=== PATIENT | female | born 1965 | race Caucasian/White ===

== ENCOUNTER 2020-01-02 12:53 | Outpatient (CLI) | payer OTHER, SELFPAY ==
--- NOTE | ~2020-01-02 | DEXA_ITS ---
Bone Density Report Name: Marian Shaw Age: 54 Sex: Female Ethnicity: White Date of : 1965 Indication: osteopenia; height loss; prior fracture; cancer; postmenopausal Referring Provider: Moo Webster Study: Bone densitometry was performed. Exam Date: January 02, 2020 Accession number: [id number] Bone Density: Region BMD T-score Z-score Classification AP Spine (L1, L2, L3) 1.044 0.2 1.3 Normal Femoral Neck (Left) 0.710 -1.2 -0.1 Osteopenia Total Hip (Left) 0.809 -1.1 -0.4 Osteopenia Total Hip Bilateral Avg 0.809 -1.1 -0.4 Osteopenia Femoral Neck (Right) 0.792 -0.5 0.6 Normal Total Hip (Right) 0.808 -1.1 -0.4 Osteopenia World Health Organization criteria for BMD impression classify patients as: Normal (T-score at or above -1.0), Osteopenia (T-score between -1.0 and -2.5), or Osteoporosis (T-score at or below -2.5). 10-year Fracture Risk(1): Major Osteoporotic Fracture 11% Hip Fracture 1.3% Reported Risk Factors: [place] (), Neck BMD=0.710, BMI=22.8, previous fracture, smoking (1) FRAX(R) Version 3.08. Fracture probability calculated for an untreated patient. Fracture probability may be lower if the patient has received treatment. Previous Exams: Region Exam Age BMD T-score BMD Change BMD Change Date g/cm2 vs Baseline vs Previous AP Spine(L1, L2, L3) 01/02/2020 54 1.044 0.2 -0.037(-3.4%)* -0.040(-3.7%)* 08/16/2017 51 1.084 0.6 0.003(0.3%) 0.003(0.3%) 06/18/2016 50 1.081 0.6 Total Hip(Left) 01/02/2020 54 0.809 -1.1 -0.018(-2.2%) -0.019(-2.2%) 08/16/2017 51 0.828 -0.9 0.001(0.1%) 0.001(0.1%) 06/18/2016 50 0.827 -0.9 Total Hip(Right) 01/02/2020 54 0.808 -1.1 -0.012(-1.4%) -0.003(-0.3%) 08/16/2017 51 0.810 -1.1 -0.009(-1.1%) -0.009(-1.1%) 06/18/2016 50 0.819 -1.0 *Denotes significance at 95% confidence level, LSC for AP Spine = 0.022 g/cm2, LSC for Total Hip = 0.027 g/cm2 Clinical Information Provided by Patient: Has had a low trauma fracture Smokes Has used the following medications: Vitamin D, Calcium Has the following medical conditions: Cancer Patient maximum height was 70 Menopause Age: 49 No regular weight bearing exercise Drinks caffeinated beverages Onset of menses at age 13 Number of children 0 Impression: The patient has low bone mass, based on the Left Femoral Neck T-score. The patient has an estimated ten-year risk of hip fracture of
== END 2020-01-02 12:54 | disposition home or self-care (01) ==
PROVIDERS: Visit Provider Internal Medicine Hematology & Oncology
DX: M85.89 Other specified disorders of bone density and structure, multiple sites (principal)
CPT/HCPCS: 77080

== ENCOUNTER 2020-07-16 09:34 | Outpatient (CLI) | payer OTHER, SELFPAY ==
--- NOTE | ~2020-07-16 | XR_ITS ---
EXAMINATION: XR hand BI arthritis min 3V EXAM DATE: 07/16/2020 10:00 INDICATION: No known recent injury provided at this time. Pain of the hands. Arthritis. TECHNIQUE: Right hand frontal, lateral and oblique projections obtained and reviewed. Left hand fron jayden, lateral and oblique projections obtained and reviewed. Catchers projection of both hands. There is no prior study for comparison. FINDINGS: There are no bony erosions identified. The joint spaces are uniform. There are no acute fr actures or dislocations identified. There is no subcutaneous gas. The soft tissue is unremarkable. There are no radiopaque foreign bodies. IMPRESSION: 1. Unremarkable hand x-ray exam. Reviewed, dictated and finalized at location A.
[2020-07-16 10:32] LABS: Rheumatoid Factor Screen Negative (Negative)
[2020-07-19 09:59] LABS: Anti Cyclic Citrullinated Pept <16 Units (<20)
[2020-07-20 10:43] LABS: ANA Cascade Screen Negative (Negative)
== END 2020-07-16 09:35 | disposition home or self-care (01) ==
LOC: CHSLAB 09:37
PROVIDERS: PCP Family Medicine; Visit Provider Family Medicine
DX: M79.641 Pain in right hand (principal); M79.642 Pain in left hand
CPT/HCPCS: 36415; 73130; 86038; 86200; 86430

== ENCOUNTER 2020-08-14 14:18 | Outpatient (CLI) | payer OTHER, SELFPAY ==
--- NOTE | ~2020-08-14 | MM_ITS ---
EXAMINATION: MM screening man BI w jerry HISTORY: Screening TECHNIQUE: Craniocaudal and mediolateral oblique 3-D tomosynthesis images were obtained and synthetic 2-D images were generated. CAD analysis was submitted and interpreted. COMPARISON: Comparison to multiple prior studies sequentially, with oldest reviewed study dated 12/2016. BREAST PARENCHYMAL COMPOSITION: There are scattered areas of fibroglandular density. FINDINGS: There is no evidence of suspicious mass, calcification, or architectural distortion to sugg est malignancy in either breast. There has been no suspicious interval change. IMPRESSION: 1. No mammographic evidence of malignancy. 2. Recommend routine screening mammography in one year. BI-RADS Category 1: Negative Reviewed, dictated and finalized at location A.
== END 2020-08-14 14:19 | disposition home or self-care (01) ==
LOC: ANHIMG 14:20
PROVIDERS: PCP Family Medicine; Visit Provider Internal Medicine Hematology & Oncology
DX: Z12.31 Encounter for screening mammogram for malignant neoplasm of breast (principal)
CPT/HCPCS: 77063; 77067

== ENCOUNTER 2020-11-17 13:09 | Outpatient (CLI) | payer OTHER, SELFPAY ==
[2020-11-17 13:24] LABS: Basophils Absolute Auto 0.1 K/mm3 (0.0-0.1); Eosinophils Absolute Auto 0.1 K/mm3 (0-0.3); Hematocrit 38.1 % (37.0-47.0); Hemoglobin 12.6 g/dL (12.0-15.0); Lymphocytes Absolute Auto 1.56 K/mm3 (0.9-3.2); Lymphocytes Percent Auto 30.8 % (18.3-44.2); Mean Corpuscular HGB Conc 33.1 g/dl (32-36); Mean Corpuscular Hemoglobin 31.5 pg (26-34); Mean Corpuscular Volume 95.3 fl (80-100); Mean Platelet Volume 8.9 fl (7.4-10.4); Monocytes Absolute Auto 0.4 K/mm3 (0.1-0.6); Monocytes Percent Auto 8.5 % (2.6-8.5); Neutrophils Percent Auto 58.7 % (45.5-73.1); Platelet Count Result 305 k/mm3 (150-375); Red Cell Distribution Width 12.3 % (11.5-14.5); White Blood Count 5.1 K/mm3 (4.5-10.0)
[2020-11-17 13:28] LABS: Blood Urea Nitrogen 4 mg/dL (8-26); Carbon Dioxide 28 mmol/L (22-30); Chloride 100 mmol/L (98-109); Estimated Glomerular Filt Rate > 60; Glucose 86 mg/dL (70-105); Potassium 4.2 mmol/L (3.5-4.9); Sodium 138 mmol/L (138-146)
[2020-11-17 16:35] LABS: Alanine Aminotransferase 12 U/L (4-35); Albumin Level 4.4 g/dL (3.5-5.1); Alkaline Phosphatase 45 U/L (38-126); Anion Gap 6 mmol/L (8-16); Aspartate Amino Transferase 28 U/L (14-36); Bilirubin,Total 0.3 mg/dL (0.2-1.3); Blood Urea Nitrogen 6 mg/dL (7-17); Calcium 9.9 mg/dL (8.4-10.2); Carbon Dioxide 30 mmol/L (22-30); Chloride 100 mmol/L (98-107); Estimated Glomerular Filt Rate > 60; Glucose 88 mg/dL (65-105); Potassium 4.2 mmol/L (3.4-5.0); Sodium 136 mmol/L (137-145)
[2020-11-21 05:44] LABS: CA 27.29 12 U/mL (<38)
== END 2020-11-17 13:10 | disposition home or self-care (01) ==
LOC: ANHLAB 13:11
PROVIDERS: PCP Family Medicine; Visit Provider Internal Medicine Hematology & Oncology
DX: C50.912 Malignant neoplasm of unspecified site of left female breast (principal)
CPT/HCPCS: 36415; 80048; 80053; 85025; 86300

== ENCOUNTER 2021-01-19 15:20 | Outpatient (CLI) | payer OTHER, SELFPAY ==
[2021-01-19 16:19] LABS: Thyroid Stimulating Hormone Reflex 1.43 u/IU/mL (0.36-3.74)
== END 2021-01-19 15:21 | disposition home or self-care (01) ==
LOC: CHSLAB 15:23
PROVIDERS: PCP Family Medicine; Visit Provider Family Medicine
DX: F32.9 Major depressive disorder, single episode, unspecified (principal); K59.00 Constipation, unspecified
CPT/HCPCS: 36415; 84443

== ENCOUNTER 2021-06-10 14:30 | Outpatient (CLI) | payer OTHER, SELFPAY ==
[2021-06-10 15:10] LABS: Uric Acid 3.5 mg/dL (2.6-6.0)
== END 2021-06-10 14:31 | disposition home or self-care (01) ==
LOC: CHSLAB 14:33
PROVIDERS: PCP Family Medicine; Visit Provider Family Medicine
DX: M10.9 Gout, unspecified (principal)
CPT/HCPCS: 36415; 84550

== ENCOUNTER 2021-09-09 12:38 | Outpatient (CLI) | payer OTHER, SELFPAY ==
--- NOTE | ~2021-09-09 | MM_ITS ---
EXAMINATION: MM screening man BI w jerry HISTORY: Screening TECHNIQUE: Craniocaudal and mediolateral oblique 3-D tomosynthesis images were obtained and synthetic 2-D images were generated. CAD analysis was submitted and interpreted. COMPARISON: Comparison to multiple prior studies sequentially, with oldest reviewed study dated 12/2016. BREAST PARENCHYMAL COMPOSITION: The breasts are heterogenously dense, which may obscure small masses FINDINGS: There is no evidence of suspicious mass, calcification, or architectural distortion to sugg est malignancy in either breast. There has been no suspicious interval change. IMPRESSION: 1. No mammographic evidence of malignancy. 2. Recommend routine screening mammography in one year. BI-RADS Category 1: Negative Reviewed, dictated and finalized at location A.
== END 2021-09-09 12:39 | disposition home or self-care (01) ==
LOC: ANHIMG 12:42
PROVIDERS: PCP Family Medicine; Visit Provider Internal Medicine Hematology & Oncology
DX: Z12.31 Encounter for screening mammogram for malignant neoplasm of breast (principal)
CPT/HCPCS: 77063; 77067

== ENCOUNTER 2022-02-11 13:38 | Outpatient (CLI) | payer OTHER, SELFPAY ==
[2022-02-11 14:04] LABS: Basophils Absolute Auto 0.1 K/mm3 (0.0-0.1); Basophils Percent Auto 0.7 % (0.2-1.2); Eosinophils Percent Auto 0.4 % (0-4.4); Hematocrit 42.6 % (37.0-47.0); Hemoglobin 14.2 g/dL (12.0-15.0); Immature Granulocyte Absolute 0.02 K/mm3 (0.00-0.031); Immature Granulocyte Percent A 0.3 % (0-0.5); Lymphocytes Absolute Auto 1.57 K/mm3 (0.9-3.2); Lymphocytes Percent Auto 20.9 % (18.3-44.2); Mean Corpuscular HGB Conc 33.3 g/dl (32-36); Mean Corpuscular Hemoglobin 33.3 pg (26-34); Mean Corpuscular Volume 99.8 fl (80-100); Mean Platelet Volume 8.5 fl (7.4-10.4); Monocytes Absolute Auto 0.5 K/mm3 (0.1-0.6); Monocytes Percent Auto 7.2 % (2.6-8.5); Neutrophils Absolute Auto 5.3 K/mm3 (1.3-6.7); Neutrophils Percent Auto 70.5 % (45.5-73.1); Platelet Count Result 367 k/mm3 (150-375); Red Blood Count 4.27 M/mm3 (4.2-5.4); Red Cell Distribution Width 12.1 % (11.5-14.5); White Blood Count 7.5 K/mm3 (4.5-10.0)
[2022-02-11 14:43] LABS: Alanine Aminotransferase 19 U/L (4-35); Albumin Level 4.8 g/dL (3.5-5.1); Alkaline Phosphatase 74 U/L (38-126); Anion Gap 7 mmol/L (8-16); Aspartate Amino Transferase 38 U/L (14-36); Bilirubin,Total 0.3 mg/dL (0.2-1.3); Blood Urea Nitrogen 8 mg/dL (7-17); Calcium 9.7 mg/dL (8.4-10.2); Carbon Dioxide 26 mmol/L (22-30); Chloride 100 mmol/L (98-107); Estimated Glomerular Filt Rate > 60; Glucose 102 mg/dL (65-110); Potassium 3.7 mmol/L (3.4-5.0); Sodium 133 mmol/L (137-145)
[2022-02-14 12:12] LABS: CA 15-3 7 U/mL (<32)
== END 2022-02-11 13:39 | disposition home or self-care (01) ==
PROVIDERS: PCP Family Medicine; Visit Provider Internal Medicine Hematology & Oncology
DX: C50.912 Malignant neoplasm of unspecified site of left female breast (principal)
CPT/HCPCS: 36415; 80053; 85025; 86300

== ENCOUNTER 2022-12-08 12:59 | Outpatient (CLI) | payer OTHER, MEDICAID, SELFPAY ==
--- NOTE | ~2022-12-08 | MM_ITS ---
EXAMINATION: MM screening [facility] BI w jerry HISTORY: Screening TECHNIQUE: Craniocaudal and mediolateral oblique 3-D tomosynthesis images were obtained and synthetic 2-D images were generated. CAD analysis was submitted and interpreted. COMPARISON: Comparison to multiple prior studies sequentially, with oldest reviewed study dated 08/07. BREAST PARENCHYMAL COMPOSITION: There are scattered areas of fibroglandular density. FINDINGS: There is no evidence of suspicious mass, calcification, or architectural distortion to sugg est malignancy in either breast. There has been no suspicious interval change. IMPRESSION: 1. No mammographic evidence of malignancy. 2. Recommend routine screening mammography in one year. BI-RADS Category 1: Negative Reviewed, dictated and finalized at location A. 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
== END 2022-12-08 13:00 | disposition home or self-care (01) ==
PROVIDERS: PCP Family Medicine; Visit Provider Internal Medicine Hematology & Oncology
DX: Z12.31 Encounter for screening mammogram for malignant neoplasm of breast (principal)
CPT/HCPCS: 77063; 77067

== ENCOUNTER 2023-02-22 13:24 | Outpatient (CLI) | payer OTHER, SELFPAY ==
[2023-02-22 13:42] LABS: Basophils Absolute Auto 0.1 K/mm3 (0.0-0.1); Basophils Percent Auto 0.7 % (0.2-1.2); Eosinophils Percent Auto 0.4 % (0-4.4); Hematocrit 37.6 % (37.0-47.0); Hemoglobin 12.9 g/dL (12.0-15.0); Immature Granulocyte Absolute 0.01 K/mm3 (0.00-0.031); Immature Granulocyte Percent A 0.1 % (0-0.5); Lymphocytes Absolute Auto 1.66 K/mm3 (0.9-3.2); Lymphocytes Percent Auto 23.5 % (18.3-44.2); Mean Corpuscular HGB Conc 34.3 g/dl (32-36); Mean Corpuscular Hemoglobin 32.8 pg (26-34); Mean Corpuscular Volume 95.7 fl (80-100); Mean Platelet Volume 8.6 fl (7.4-10.4); Monocytes Absolute Auto 0.6 K/mm3 (0.1-0.6); Monocytes Percent Auto 7.8 % (2.6-8.5); Neutrophils Absolute Auto 4.8 K/mm3 (1.3-6.7); Neutrophils Percent Auto 67.5 % (45.5-73.1); Platelet Count Result 363 k/mm3 (150-375); Red Blood Count 3.93 M/mm3 (4.2-5.4); Red Cell Distribution Width 12.7 % (11.5-14.5); White Blood Count 7.1 K/mm3 (4.5-10.0)
[2023-02-22 15:06] LABS: Alanine Aminotransferase 19 U/L (6-35); Albumin Level 4.6 g/dL (3.5-5.1); Alkaline Phosphatase 49 U/L (38-126); Anion Gap 7 mmol/L (8-16); Aspartate Amino Transferase 27 U/L (14-36); Bilirubin,Total 0.4 mg/dL (0.2-1.3); Blood Urea Nitrogen 9 mg/dL (7-17); Calcium 9.2 mg/dL (8.4-10.2); Carbon Dioxide 28 mmol/L (22-30); Chloride 100 mmol/L (98-107); Estimated Glomerular Filt Rate > 60; Glucose 95 mg/dL (65-110); Sodium 135 mmol/L (137-145)
[2023-02-25 04:14] LABS: CA 15-3 9 U/mL (<32)
== END 2023-02-22 13:25 | disposition home or self-care (01) ==
LOC: ANHLAB 13:30
PROVIDERS: PCP Family Medicine; Visit Provider Internal Medicine Hematology & Oncology
DX: C50.912 Malignant neoplasm of unspecified site of left female breast (principal)
CPT/HCPCS: 36415; 80053; 85025; 86300

== ENCOUNTER 2024-02-21 12:56 | Outpatient (CLI) | payer OTHER, SELFPAY ==
[2024-02-21 13:13] LABS: Basophils Absolute Auto 0.1 K/mm3 (0.0-0.1); Basophils Percent Auto 0.7 % (0.2-1.2); Eosinophils Percent Auto 0.3 % (0-4.4); Hematocrit 36.4 % (37.0-47.0); Hemoglobin 12.7 g/dL (12.0-15.0); Immature Granulocyte Absolute 0.02 K/mm3 (0.00-0.031); Immature Granulocyte Percent A 0.3 % (0-0.5); Lymphocytes Absolute Auto 1.82 K/mm3 (0.9-3.2); Mean Corpuscular HGB Conc 34.9 g/dl (32-36); Mean Corpuscular Hemoglobin 32.5 pg (26-34); Mean Corpuscular Volume 93.1 fl (80-100); Mean Platelet Volume 8.7 fl (7.4-10.4); Monocytes Absolute Auto 0.5 K/mm3 (0.1-0.6); Monocytes Percent Auto 7.4 % (2.6-8.5); Neutrophils Absolute Auto 4.3 K/mm3 (1.3-6.7); Neutrophils Percent Auto 64.3 % (45.5-73.1); Platelet Count Result 327 k/mm3 (150-375); Red Blood Count 3.91 M/mm3 (4.2-5.4); Red Cell Distribution Width 12.5 % (11.5-14.5); White Blood Count 6.7 K/mm3 (4.5-10.0)
[2024-02-21 16:53] LABS: Alanine Aminotransferase 17 U/L (6-35); Albumin Level 4.7 g/dL (3.5-5.1); Alkaline Phosphatase 46 U/L (38-126); Anion Gap 7 mmol/L (4-12); Aspartate Amino Transferase 29 U/L (14-36); Bilirubin,Total 0.5 mg/dL (0.2-1.3); Blood Urea Nitrogen 7 mg/dL (7-17); Calcium 9.8 mg/dL (8.4-10.2); Carbon Dioxide 25 mmol/L (22-30); Chloride 100 mmol/L (98-107); Estimated Glomerular Filt Rate > 60; Glucose 78 mg/dL (65-110); Sodium 132 mmol/L (137-145)
[2024-02-23 03:44] LABS: CA 15-3 11 U/mL (<32)
== END 2024-02-21 12:57 | disposition home or self-care (01) ==
LOC: ANHLAB 12:58
PROVIDERS: PCP Nurse Practitioner Family; Visit Provider Internal Medicine Hematology & Oncology
DX: C50.912 Malignant neoplasm of unspecified site of left female breast (principal)
CPT/HCPCS: 36415; 80053; 85025; 86300

== ENCOUNTER 2024-05-09 13:45 | Outpatient (CLI) | payer OTHER, SELFPAY ==
--- NOTE | ~2024-05-09 | MM_ITS ---
EXAMINATION: MM screening man BI w jerry HISTORY: Screening mammogram, family history of breast cancer in her mother. TECHNIQUE: Craniocaudal and mediolateral oblique 3-D tomosynthesis images were obtained and synthetic 2-D images were generated. CAD analysis was submitted and interpreted. COMPARISON: 12/08/2022, 09/09/2021, 08/14/2020 BREAST PARENCHYMAL COMPOSITION:Not Dense. There are scattered areas of fibroglandular density. FINDINGS: Stable postoperative change of the left breast. No suspicious mass, calcification, or archi tectural distortion are identified in either breast to suggest malignancy. There has been no suspicio us interval change. IMPRESSION: No mammographic evidence of malignancy. Recommend routine screening mammography in one year. BI-RADS Category 2: Benign finding(s). Reviewed, dictated and finalized at [facility].
== END 2024-05-09 13:46 | disposition home or self-care (01) ==
LOC: ANHIMG 13:47
PROVIDERS: PCP Family Medicine; Visit Provider Internal Medicine Hematology & Oncology
DX: Z12.31 Encounter for screening mammogram for malignant neoplasm of breast (principal)
CPT/HCPCS: 77063; 77067

== ENCOUNTER 2024-08-13 13:43 | Outpatient (CLI) | payer OTHER, SELFPAY ==
--- NOTE | ~2024-08-13 | DEXA_ITS ---
Bone Density Report Name: KENNEDY KENNEDY Age: 58 Sex: Female Ethnicity: White Date of : 1965 Indication: postmenopausal; screening for osteoporosis; height loss; cancer; Referring Provider: CARINA COLIN Study: Bone densitometry was performed. Exam Date: August 13, 2024 Accession number: [id number] Bone Density: Region BMD T-score Z-score Classification AP Spine(L1-L4) 0.915 -1.2 0.3 Osteopenia Femoral Neck (Left) 0.626 -2.0 -0.7 Osteopenia Total Hip (Left) 0.697 -2.0 -1.0 Osteopenia Femoral Neck (Right) 0.638 -1.9 -0.6 Osteopenia Total Hip (Right) 0.721 -1.8 -0.8 Osteopenia Total Hip Mean 0.709 -1.9 -0.9 Osteopenia World Health Organization criteria for BMD impression classify patients as: Normal (T-score at or above -1.0), Osteopenia (T-score between -1.0 and -2.5), or Osteoporosis (T-score at or below -2.5). 10-year Fracture Risk(1): Major Osteoporotic Fracture 8.9% Hip Fracture 1.9% Reported Risk Factors: [place] (), Neck BMD=0.626, BMI=21.1, smoking (1) FRAX(R) Version 3.08. Fracture probability calculated for an untreated patient. Fracture probability may be lower if the patient has received treatment. Clinical Information Provided by Patient: Smokes Has used the following medications: Vitamin D, Calcium Has the following medical conditions: Cancer Patient maximum height was 70.0 No regular weight bearing exercise Does not regularly consume dairy products Drinks caffeinated beverages Onset of menses at age 13 Number of children 0 Impression: The patient has low bone mass, based on the Left Total Hip T-score. The patient has an estimated ten-year risk of hip fracture of 1.9% and an estimated ten-year risk of major fracture of 8.9%, based on the WHO FRAX algorithm. The patient has risk factors, including: smoking. Discussion: BONE DENSITY IS LOW AT ONE OR MORE SKELETAL SITES. This patient's lowest T-score is low at one or more skeletal sites. It meets the World Health Organization's (WHO) criteria for ?low bone mass? (T-score between -1.0 and -2.5). The patient's 10-year risk of fracture as calculated by FRAX is less than the threshold where pharmacological therapy is recommended by the National Osteoporosis Foundation (NOF). However, all treatment decisions require clinical judgment and consideration of individual patient factors, including patient preferences, comorbidities, previous drug use, risk factors not captured in the FRAX model (e.g., frailty, falls, vitamin D deficiency, increased bone turnover, interval significant decline in bone density) and possible under or overestimation of fracture risk by FRAX. The patient should follow a healthful lifestyle (good nutrition with adequate calcium and vitamin D, and appropriate weight-bearing exercise).
== END 2024-08-13 13:44 | disposition home or self-care (01) ==
PROVIDERS: PCP Family Medicine; Visit Provider Internal Medicine Hematology & Oncology
DX: C50.912 Malignant neoplasm of unspecified site of left female breast (principal); M85.88 Other specified disorders of bone density and structure, other site; M85.852 Other specified disorders of bone density and structure, left thigh; M85.851 Other specified disorders of bone density and structure, right thigh
CPT/HCPCS: 77080

== ENCOUNTER 2024-08-30 10:14 | Outpatient (CLI) | payer OTHER, SELFPAY ==
--- NOTE | 2024-08-30 10:18 | ECG_ITS ---
Test Date: 2024-08-30 10:27:44 Measurements Intervals [place] Rate: 62 P: 87 MA: 158 QRS: 84 QRSD: 98 T: 79 QT: 398 QTc: 407 Interpretive Statements SINUS RHYTHM INCOMPLETE RIGHT BUNDLE BRANCH BLOCK No previous ECG available for comparison Electronically Signed On 08-30-2024 15:23:53 CDT by Toyin Huerta M.D.
== END 2024-08-30 10:15 | disposition home or self-care (01) ==
LOC: CHSIMG 10:15
PROVIDERS: PCP Family Medicine; Visit Provider Family Medicine
DX: R00.2 Palpitations (principal); I45.10 Unspecified right bundle-branch block
CPT/HCPCS: 93005

== ENCOUNTER 2025-03-27 11:15 | Outpatient (CLI) | payer BC, SELFPAY ==
[2025-03-27 11:34] LABS: Basophils Absolute Auto 0.1 K/mm3 (0.0-0.1); Basophils Percent Auto 0.9 % (0.2-1.2); Eosinophils Percent Auto 0.7 % (0-4.4); Hematocrit 39.1 % (37.0-47.0); Hemoglobin 13.2 g/dL (12.0-15.0); Lymphocytes Absolute Auto 1.37 K/mm3 (0.9-3.2); Lymphocytes Percent Auto 24.7 % (18.3-44.2); Mean Corpuscular HGB Conc 33.8 g/dl (32-36); Mean Corpuscular Hemoglobin 32.6 pg (26-34); Mean Corpuscular Volume 96.5 fl (80-100); Mean Platelet Volume 8.8 fl (7.4-10.4); Monocytes Absolute Auto 0.4 K/mm3 (0.1-0.6); Monocytes Percent Auto 7.9 % (2.6-8.5); Neutrophils Absolute Auto 3.7 K/mm3 (1.3-6.7); Neutrophils Percent Auto 65.8 % (45.5-73.1); Platelet Count Result 320 k/mm3 (150-375); Red Blood Count 4.05 M/mm3 (4.2-5.4); Red Cell Distribution Width 12.7 % (11.5-14.5); White Blood Count 5.6 K/mm3 (4.5-10.0)
--- OUTSIDE RECORDS SUMMARY | 2025-03-27 11:45 | XMS_ITS | Clinical Summary ---
Author Organization [facility] Address [address] [place] [address] Care Team Providers Care Master Machinist Name Role Phone Tank Burton DO Primary Care Provider [phone] Allergies Active Allergy Reactions Criticality Noted Date Comments Nut Flavor Anaphylaxis High 12/14/2017 Tree Nut Unknown 02/25/2022 Medications EPINEPHrine (EpiPen 2-Leo) 0.3 mg/0.3 mL Auto-Injector EpiPen 2-Leo 0.3 mg/0.3 mL injection, auto-inject or Active EPINEPHrine (EpiPen) 0.3 mg/0.3 mL Auto-Injector EpiPen 2-Leo 0.3 mg/0.3 mL injection, auto-inject or Active multivitamins-mi nerals-lutein (CENTRUM SILVER) Tablet Take 1 Tablet by mouth daily. Active L.acidoph,plant- B.animal,long (Probiotic Acidophilus Beads) 2 billion cell Capsule Take by mouth daily. Active Active Problems Problem Noted Date Diagnosed Date Osteopenia of multiple sites 11/14/2019 Benign hypertension 02/09/2017 Malignant neoplasm of upper- outer quadrant of left female breast 02/09/2017 Tobacco use 02/09/2017 Encounters Date Type Department Care Team Description 03/27/2025 Orders Only [facility] Oncology and Hematology - [place] [address] [address] Moo Webster MD Malignant neoplasm of left female breast, unspecified estrogen receptor status, unspecified site of breast (CMS/HCC) (Primary Dx) 01/14/2025 External Device Data STL ABSTRACTION Provider, Abstract from Last 3 Months Social History Tobacco Use Types Packs/Day Years Used Date Smoking Tobacco: Every Day Cigarettes 1 35 Tobacco Cessation:Ready to Q uit: Not Asked; Counseling Given: Not Answered Alcohol Use Standard Drinks/Week Comments Yes 0 (1 standard drink = 0.6 oz pur e alcohol) occasional Comments No Sex and Gender Information Value Date Recorded Sex Assigned at Not on file 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 Gender Identity Not on file Sexual Orientation Not on file Last Filed Vital Signs Vital Sign Reading Time Taken Comments Blood Pressure 103/63 03/01/2024 2:26 PM CDT Pulse 53 03/01/2024 2:26 PM CDT Temperature 36.2 C (97.2 F) 03/01/2024 2:26 PM CDT Respiratory Rate 18 03/01/2024 2:26 PM CDT Oxygen Saturation 95% 03/01/2024 2:26 PM CDT Inhaled Oxygen Concentration - - Weight 64.6 kg (142 lb 6.4 oz) 03/01/2024 2:26 P M CDT Height 172.7 cm (5' 8 ) 02/25/2022 3:28 PM CDT Body Mass Index 21.65 02/25/2022 3:28 PM CDT Plan of Treatment Upcoming Encounters Date Type Department Care Team (Late st Contact Info) Description 04/04/2025 1:00 PM CDT Office Visit [facility] Oncology and Hematology - [place] [address] [place] [address] [address] Moo Webster MD [address] [facility] [address] [place] [address] Health Maintenance Due Date Last Done Comments DTAP/TDAP/TD VACCINES (1 - Tdap) 1982 HPV/Cotest (21-29) 1984 CERVICAL CANCER SCREENING 1993 HPV/Cotest (30-65) 1993 PAP SMEAR 1993 COLORECTAL SCREENING 2008 Colorectal Cancer Screening 2008 FIT-DNA Q 3 years 2008 FIT/FOBT Q 1 year 2008 Flex Sig/CT Colonography Q 5 years 2008 ZOSTER VACCINE (1 of 2) 2013 INFLUENZA VACCINE (#1) 2024 Preventative Visit- Commercial 2024 BREAST CANCER SCREENING 05/09/2025 05/09/20 24, 08/14/2020, 08/09/2019, Additional history exists RSV VACCINE (60+ or ) (1 - 1-dose 75+ series) 2038 Procedures Procedure Name Priority Date/Time Associated Diagnosis Comments MAMMO SCREENING BILAT Routine 05/09/2024 12:44 PM CDT from Last 3 Months or Most Recently Relevant to Health Maintenance Results * MAMMO SCREENING BILAT (05/09/2024 12:44 PM CDT) Anatomical Region Laterality Modality Breast Bilateral Mammography Moo Webster MD MAMMO ORDERABLES Final Result from Last 3 Months or Most Recently Relevant to Health Maintenance Insurance [employer] Care Teams Master Machinist Relationship Specialty Start Date End Date Tank Burton DO [address] [place] [address] PCP - General Family Practice 03/02/23
--- OUTSIDE RECORDS SUMMARY | 2025-03-27 11:45 | XMS_ITS | Encounter Summary ---
Author Organization [facility] Address [address] [place] [address] Care Team Providers Care Supervisor Electric Name Role Phone Tank Burton DO Primary Care Provider [phone] Encounter Details Date Type Department Care Team (Late Contact Info) Description 03/27/2025 Orders Only [facility] Oncology and Hematology [facility] [address] [place] [address] Moo Webster MD [address] [place] [address] Malignant neoplasm of left female breast, unspecified estrogen receptor status, unspecified site of breast (CMS/HCC) (Primary Dx) Social History Tobacco Use Types Packs/Day Years Used Date Smoking Tobacco: Every Day Cigarettes 1 35 Alcohol Use Standard Drinks/Week Comments Yes 0 (1 standard drink = 0.6 oz pur e alcohol) occasional Comments No Sex and Gender Information Value Date Recorded Sex Assigned at Not on file 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 Gender Identity Not on file Sexual Orientation Not on file documented as of this encounter Plan of Treatment Upcoming Encounters Date Type Department Care Team (Late st Contact Info) Description 04/04/2025 1:00 PM CDT Office Visit [facility] Oncology and Hematology [facility] [address] [place] [address] Moo Webster MD [address] [place] [address] Scheduled Orders Name Type Priority Associated Diagnoses Orde r Schedule CANCER ANTIGEN 15-3 Lab Routine Malignant neoplasm of left female breast, unspecified estrogen receptor status, unspecified site of breast (CMS/HCC) Expected: 03/27/2025, Expires: 03/27/2026 CBC WITH DIFFERENTIAL Lab Routine Malignant neoplasm of left female breast, unspecified estrogen receptor status, unspecified site of breast (CMS/HCC) Expected: 03/27/2025, Expires: 03/27/2026 COMPREHENSIVE METABOLIC PANEL Lab Routine Malignant neoplasm of left female breast, unspecified estrogen receptor status, unspecified site of breast (CMS/HCC) Expected: 03/27/2025, Expires: 03/27/2026 documented as of this encounter Visit Diagnoses Diagnosis Malignant neoplasm of left female breast, unspecified estrogen receptor status, unspecified site of breast (CMS/HCC)- Primary documented in this encounter Care Teams Supervisor Electric Relationship Specialty Start Date End Date Tank Burton DO [address] [place] [address] PCP - General Family Practice 03/02/23 documented as of this encounter
[2025-03-27 12:59] LABS: Alanine Aminotransferase 23 U/L (6-35); Albumin Level 4.7 g/dL (3.5-5.1); Alkaline Phosphatase 43 U/L (38-126); Anion Gap 10 mmol/L (4-12); Aspartate Amino Transferase 44 U/L (14-36); Bilirubin,Total 0.3 mg/dL (0.2-1.3); Blood Urea Nitrogen 5 mg/dL (7-17); Calcium 9.6 mg/dL (8.4-10.2); Carbon Dioxide 25 mmol/L (22-30); Chloride 100 mmol/L (98-107); Estimated Glomerular Filt Rate > 60; Glucose 92 mg/dL (65-110); Sodium 135 mmol/L (137-145)
[2025-03-29 05:24] LABS: CA 15-3 11 U/mL (<32)
== END 2025-03-27 11:16 | disposition home or self-care (01) ==
PROVIDERS: PCP Family Medicine; Visit Provider Internal Medicine Hematology & Oncology
DX: C50.912 Malignant neoplasm of unspecified site of left female breast (principal)
CPT/HCPCS: 36415; 80053; 85025; 86300

== ENCOUNTER 2025-07-18 13:57 | Outpatient (CLI) | payer BC, SELFPAY ==
--- NOTE | ~2025-07-18 | MM_ITS ---
EXAMINATION: screening [facility] BI w jerry INDICATION: Asymptomatic, referred for screening mammogram. History of Left partial mastectomy . COMPARISON: 05/09/2024 through 08/14/2020 TECHNIQUE: Digital Breast Tomosynthesis CC, MLO views were obtained of Both breasts with computer-aided detection to assist in interpretation of the study. FINDINGS: There are scattered areas of fibroglandular density. Posttreatment changes in Left breast are stable. No new focal dominant mass, architectural distortion, or suspicious microcalcifications are identified. There are no features to suggest malignancy. IMPRESSION: Stable benign mammogram. No evidence of malignancy in the breast. BI-RADS 2, BENIGN Reviewed, dictated and finalized at location B.
--- OUTSIDE RECORDS SUMMARY | 2025-07-18 15:45 | XMS_ITS | Clinical Summary ---
Author Organization [facility] Address [address] [place] [address] Care Team Providers Care Gold Layer Name Role Phone Tank Burton DO Primary Care Provider [phone] Allergies Active Allergy Reactions Criticality Noted Date [...] Encounters Date Type Department Care Team Description 07/16/2025 External Device Data STL ABSTRACTION Provider, Abstract 07/09/2025 External Device Data STL ABSTRACTION Provider, Abstract 06/25/2025 External Device Data STL ABSTRACTION Provider, Abstract 06/25/2025 External Device Data STL ABSTRACTION Provider, Abstract 06/18/2025 External Device Data STL ABSTRACTION Provider, Abstract 06/12/2025 External Device Data STL ABSTRACTION Provider, Abstract 05/22/2025 External Device Data STL ABSTRACTION Provider, Abstract 05/21/2025 External Device Data STL ABSTRACTION Provider, Abstract 04/24/2025 External Device Data STL ABSTRACTION Provider, Abstract [...] on file 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 Gender Identity Not on file Sexual Orientation Not on file Last Filed Vital Signs Vital Sign Reading Time Taken Comments Blood Pressure 119/72 04/04/2025 1:03 PM CDT Pulse 72 04/04/2025 1:03 PM CDT Temperature 36.6 C (97.8 F) 04/04/2025 1:03 PM CDT Respiratory Rate 15 04/04/2025 1:03 PM CDT Oxygen Saturation 98% 04/04/2025 1:03 PM CDT Inhaled Oxygen Concentration - - Weight 65.6 kg (144 lb 9.6 oz) 04/04/2025 1:03 P M CDT Height 172.7 cm (5' 8) 02/25/2022 3:28 PM CDT Body Mass Index 21.99 02/25/2022 3:28 PM CDT Plan of Treatment Upcoming Encounters Date Type Department Care Team (Late st Contact Info) Description 04/08/2026 1:00 PM CDT Office Visit [facility] Oncology and Hematology - [place] [address] [facility] [address] [place] [address] Moo Webster MD [address] [facility] [address] [place] [address] Health Maintenance Due Date Last Done Comments DTAP/TDAP/TD VACCINES (1 - Tdap) 1982 HPV/Cotest (21-29) 1984 CERVICAL CANCER SCREENING 1993 HPV/Cotest (30-65) 1993 PAP SMEAR 1993 COLORECTAL SCREENING 2008 Colorectal Cancer Screening 2008 FIT-DNA Q 3 years 2008 FIT/FOBT Q 1 year 2008 Flex Sig/CT Colonography Q 5 years 2008 Lung Cancer Screening 2013 ZOSTER VACCINE (1 of 2) 2013 BREAST CANCER SCREENING 05/09/2025 05/09/20 24, 08/14/2020, 08/09/2019, Additional history exists INFLUENZA VACCINE (#1) 2025 RSV VACCINE (60+ or ) (1 - [...] Health Maintenance Insurance [employer] PPO Care Teams Gold Layer Relationship Specialty Start Date End Date Tank Burton DO [address] [place] [address] PCP - General Family Practice 03/02/23
== END 2025-07-18 13:58 | disposition home or self-care (01) ==
LOC: ANHFOHIMG 13:59
PROVIDERS: PCP Family Medicine; Visit Provider Internal Medicine Hematology & Oncology
DX: Z12.31 Encounter for screening mammogram for malignant neoplasm of breast (principal)
CPT/HCPCS: 77063; 77067

== ENCOUNTER 2025-08-22 10:50 | Outpatient (CLI) | payer BC, SELFPAY ==
--- NOTE | 2025-08-22 | S_PTH ---
PATIENT: Marian Cole LOC: [facility]#:[id number] AGE/SX: 59/F ROOM: RE08/22/[address]: Tank Burton DO : 1965 BED: DIS: 08/22/2025 SPEC #: [id number] RECD: 08/22/25 06:09 STATUS: BONITA REMehreen #: [id number] AMOL: 08/22/25 00:[address]: Tank Burton DEPT: [facility] Surgical RECD BY: Clara Page MLT, ([facility]) Tissues: A - Skin Bx Procedures: Hematoxylin and Eosin Stain Gross and Microscopic Level 4
[2025-08-22 11:02] LABS: Hematocrit 39.2 % (35.0-49.0); Hemoglobin 13.4 g/dL (12.0-15.0); Immature Granulocyte Percent A 0.3 % (0.0-0.0); Lymphocytes Absolute Auto 1.56 K/mm3 (1.10-4.50); Mean Corpuscular HGB Conc 34.2 g/dL (32-36); Mean Corpuscular Hemoglobin 32.5 pg (27.0-31.0); Mean Corpuscular Volume 95.1 fL (78.0-102.0); Nucleated Red Blood Cells Absolute Auto 0.00 K/mm3 (0.00-0.00); Nucleated Red Blood Cells Perc 0.0 % (0-0.0); Platelet Count Result 341 K/mm3 (150-420); Red Blood Count 4.12 M/mm3 (4.20-5.40); White Blood Count 7.7 K/mm3 (4.8-10.8)
[2025-08-22 11:45] LABS: Alanine Aminotransferase 17 U/L (6-35); Albumin Level 5.0 g/dL (3.5-5.1); Alkaline Phosphatase 36 U/L (38-126); Anion Gap 7 mmol/L (4-12); Aspartate Amino Transferase 44 U/L (14-36); Bilirubin,Total 0.7 mg/dL (0.2-1.3); Blood Urea Nitrogen 6 mg/dL (7-17); Calcium 10.3 mg/dL (8.4-10.2); Carbon Dioxide 27 mmol/L (22-30); Chloride 103 mmol/L (98-107); Cholesterol 207 mg/dL (0-200); Estimated Glomerular Filt Rate > 60; Glucose 91 mg/dL (65-110); Osmolality Calculated 281 mOsm/kg (285-295); Potassium 5.9 mmol/L (3.4-5.0); Sodium 137 mmol/L (137-145); Total Protein 9.3 g/dL (6.3-8.2); Triglycerides 65 mg/dL (<150); Uric Acid 3.5 mg/dL (2.5-7.5)
[2025-08-22 11:52] LABS: HDL Direct > 110 mg/dL
[2025-08-22 12:17] LABS: Thyroid Stimulating Hormone Reflex 1.540 uIU/mL (0.465-4.68)
--- OUTSIDE RECORDS SUMMARY | 2025-08-22 12:49 | XMS_ITS | Clinical Summary ---
Author Organization [facility] Address [address] [place] [address] Care Team Providers Care Timber Incisor Operator Name Role Phone Tank Burton DO Primary Care Provider [phone] Allergies Active Allergy Reactions Criticality Noted Date [...] Encounters Date Type Department Care Team Description 08/13/2025 External Device Data STL ABSTRACTION Provider, Abstract 07/23/2025 Orders Only [facility] Oncology and Hematology - [place] [address] [place] [address] Moo Webster MD 07/16/2025 External Device Data STL ABSTRACTION Provider, [...] on file 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 [address] [place] [address] Health Maintenance Due Date Last Done Comments DTAP/TDAP/TD VACCINES (1 - Tdap) 1982 HPV/Cotest (21-29) 1984 CERVICAL CANCER SCREENING 1993 HPV/Cotest (30-65) 1993 PAP SMEAR 1993 COLORECTAL SCREENING 2008 Colorectal Cancer Screening 2008 FIT-DNA Q 3 years 2008 FIT/FOBT Q 1 year 2008 Flex Sig/CT Colonography Q 5 years 2008 Lung Cancer Screening 2013 ZOSTER VACCINE (1 of 2) 2013 INFLUENZA VACCINE (#1) 2025 BREAST CANCER SCREENING 07/18/2026 07/18/20 25, 05/09/2024, 08/14/2020, Additional history exists RSV VACCINE (60+ or ) (1 - 1-dose 75+ series) 2038 Procedures Procedure Name Priority Date/Time Associated Diagnosis Comments MAMMO SCREENING BILAT Routine 07/18/2025 10:34 AM CDT from Last 3 Months Results * MAMMO SCREENING BILAT (07/18/2025 10:34 AM CDT) Anatomical Region Laterality Modality Breast Bilateral Mammography Moo Webster MD MAMMO ORDERABLES Final Result from Last 3 [place] [id number] [place] [address] [place] [id number] [employer]TRUE BLUE PPO Care Teams Timber Incisor Operator Relationship Specialty Start Date End Date Tank Burton DO [address] [place] [address] PCP - General Family Practice 03/02/23
[2025-08-22 12:51] LABS: Vitamin B12 630.0 pg/mL (239-931)
== END 2025-08-22 10:51 | disposition home or self-care (01) ==
PROVIDERS: PCP Family Medicine; Visit Provider Family Medicine
DX: C44.729 Squamous cell carcinoma of skin of left lower limb, including hip (principal); E03.9 Hypothyroidism, unspecified; C50.912 Malignant neoplasm of unspecified site of left female breast; E53.8 Deficiency of other specified B group vitamins; M10.9 Gout, unspecified; L98.9 Disorder of the skin and subcutaneous tissue, unspecified
CPT/HCPCS: 36415; 80053; 80061; 82607; 82746; 84443; 84550; 85025; 88305